=== PATIENT | male | born 1965 | race Caucasian/White ===

== ENCOUNTER 2019-10-30 16:06 | Outpatient (CLI) | payer MEDICARE, OTHER ==
--- NOTE | 2019-10-30 16:30 | RAD ---
EXAM: CERVICAL SPINE THREE VIEWS: 10/30/19 HISTORY: M54.12, pinched nerve in neck. Exam includes neutral, flexion, and extension lateral views. Generalized disc osteophytosis. No prevertebral abnormal soft tissue swelling. No acute fracture or d islocation involving the visualized C-spine. IMPRESSION: Generalized spondylosis. POS: [facility]
== END 2019-10-30 16:07 | disposition home or self-care (01) ==
LOC: TBSIIMAG 16:06
PROVIDERS: ATTEND Neurological Surgery
DX: M47.22 Other spondylosis with radiculopathy, cervical region (principal)
CPT/HCPCS: 72040

== ENCOUNTER 2019-11-20 13:19 | Outpatient (CLI) | payer OTHER ==
--- NOTE | 2019-11-20 14:50 | CT ---
CT CHEST WITHOUT CONTRAST: INDICATION: Followup abnormal chest x-ray 11/13/2019. That exam revealed a right apical density. FINDINGS: There are chronic lung parenchymal changes. There are small pleural-based bullous changes in both ap ical regions. There is bilateral apical pleural thickening which is more prominent on the right. Th e apical pleural thickening on the right is somewhat nodular along the posterior right apical pleural surface. This would explain the density noted on recent plain film. There is a small focal pleural-based nodular density in the posterior left upper lobe seen on image 1 1 of 54. The nodular component measures in the 8-9 mm range on the axial image 11 of 54. Lung oscar are otherwise clear. Mediastinum unremarkable. No adenopathy. Images through the upper abdomen are unremarkable. Osseou s structures are unremarkable. IMPRESSION: Chronic lung changes. Small pleural-based bullae are seen in both apical regions which associated bi lateral apical pleural thickening which has a nodular appearance bilaterally as described above. Maria T rt-term followup chest CT is recommended to confirm stability of the nodular pleural thickening. Rec ommend repeat noncontrast chest CT in 6 months to confirm stability. POS: [facility]
== END 2019-11-20 13:20 | disposition home or self-care (01) ==
LOC: SCSCT 13:19
PROVIDERS: ATTEND Family Medicine
DX: R91.8 Other nonspecific abnormal finding of lung field (principal); J43.9 Emphysema, unspecified; J92.9 Pleural plaque without asbestos; J98.4 Other disorders of lung
CPT/HCPCS: 71250

== ENCOUNTER 2020-01-06 06:23 | Outpatient (CLI) | payer OTHER ==
[2020-01-06 15:23] LABS: Hemoglobin 14.4 g/dL (14.0-18.0); Mean Corpuscular Hemoglobin 32.6 pg (27.0-31.0); Mean Corpuscular Volume 98.5 fL (78.0-98.0); Mean Platelet Volume 7.3 fL (7.4-10.4); Platelet Count 372 thou/uL (130-400); RBC Distribution Width 12.3 % (11.5-14.5); Red Blood Cell (RBC) Count 4.43 mill/uL (4.70-6.10); White Blood Cell (WBC) Count 11.2 thou/uL (4.8-10.8)
[2020-01-06 15:29] LABS: PTT 36.3 SEC (22.9-36.1); Prothrombin Time 12.7 SEC (12.0-14.7)
== END 2020-01-06 06:24 | disposition home or self-care (01) ==
LOC: LABBT 06:23
PROVIDERS: ATTEND Neurological Surgery
DX: Z01.812 Encounter for preprocedural laboratory examination (principal); M47.12 Other spondylosis with myelopathy, cervical region
CPT/HCPCS: 85027; 85610; 85730

== ENCOUNTER 2020-01-06 14:00 | Inpatient (IN) | payer OTHER ==
--- NOTE | 2020-01-05 21:05 | HP ---
SUPERVISING PHYSICIAN: Brandon Cole MD CHIEF COMPLAINT: Neck surgery. HISTORY OF PRESENT ILLNESS: Popeye is a 54-year-old male, who reports neck pain and bilateral arm pain. Pain on the left arm is greater than the right arm. The patient states that he has been at pain for at least over a year. The pain goes down into his left shoulder down the back of his arm and the top of his hand bilaterally affecting his pointer and middle finger. He has numbness and tingling in the same distribution. He denies any balance issues. PAST MEDICAL HISTORY: Anxiety, seasonal allergies, chronic pain. PAST SURGICAL HISTORY: Denies. HOSPITALIZATIONS: Denies past hospitalization. PAST FAMILY HISTORY: Father . Mother alive, diagnosed with diabetes and heart disease. SOCIAL HISTORY: Former smoker, quit as of September 2019 for surgery. No alcohol use. No drug use. Sexually active, yes. MEDICATIONS: 1. Naproxen. 2. Gabapentin. 3. Quetiapine. ALLERGIES: NO KNOWN DRUG ALLERGIES. REVIEW OF SYSTEMS: CONSTITUTIONAL: Denies fever, or chills. HEENT: Denies double vision, blurred vision, or difficulty swallowing. CARDIOVASCULAR/RESPIRATORY: Denies chest pain, shortness of breath, or cough. GI: Denies indigestion, vomiting, black stool. : Denies burning urination, blood in the urine, incontinence. MUSCULOSKELETAL: As per history of present illness. NEUROLOGICAL: As per history of present illness. PSYCHOLOGICAL: Denies anxiety at this time, depression, personality changes, or crying. PHYSICAL EXAMINATION: CONSTITUTIONAL: The patient is alert and oriented x3. Appropriate, nontoxic. NECK: Soft, supple. No masses are noted. Range of motion is intact and nonpainful. NEUROLOGICAL: Awake, alert, and oriented x3. Memory, attention, fund of knowledge normal. Cranial nerves grossly intact. Upper extremities 5/5 strength in deltoids, triceps, finger extensions, finger intrinsics, biceps, wrist extension. Sensations equal bilaterally. Reflexes symmetric, brisk, 2 beats clonus. Spurling's negative. Positive cervical radiculopathy on the left. Positive Lhermitte's phenomenon and myopathy, IMAGING STUDIES: Imaging shows cervical MRI degenerative changes stenosis C4-C5 , less than on C5-C6, C6-C7. X-ray generalized spondylosis. ASSESSMENT: 1. Cervical spondylosis with myopathy. 2. Cervical pain. 3. Cervical radiculopathy. 4. Cervical stenosis of the spine. PLAN: ACDF C4-5, C5-6, C6-7. Case #[id number]. Obtain anesthesia clearance. The patient has quit nicotine as of September 2019. INFORMED CONSENT: We discussed, indications, risks, benefits, and alternatives , as well as the expected outcomes from anterior cervical diskectomy and fusion. The risks discussed include, but are not limited to bleeding, infection, CSF leak, damage to the trachea, esophagus or vocal cords, dysphagia, spinal cord injury, wheelchair dependent, ventilator dependent, stroke, major blood vessel injury, anesthesia complications including . Long-term risks include need for future surgery or hardware failure. The patient expressed understanding of our discussion and would like to proceed. Job ID: [id number] MTDD
[2020-01-08] MEDS ORDERED: Midazolam HCl 2 mg/2 ml Vial ONE (11:44)
[2020-01-08] MEDS ORDERED: Thrombin 5000 UNITS/5 ML VIAL ONE (11:54)
[2020-01-08] MEDS ORDERED: Fentanyl 100 MCG/2 ML VIAL ONE ×5 (13:29→19:44)
[2020-01-08] MEDS ORDERED: Fentanyl 250 MCG/5 ML VIAL ONE (13:44)
[2020-01-08] MEDS ORDERED: Lidocaine 1% PF 5 ML VIAL ONE (14:19)
[2020-01-08] MEDS ORDERED: EPHEDRINE 25 MG/5 ML SYRINGE ONE (14:19)
[2020-01-08] MEDS ORDERED: Vecuronium 10 MG VIAL ONE (14:19)
[2020-01-08] MEDS ORDERED: Ondansetron PF 4 MG/2 ML Vial ONE (14:19)
[2020-01-08] MEDS ORDERED: Dexamethasone 20 MG/5 ML VIAL ONE (14:19)
[2020-01-08] MEDS ORDERED: Succinylcholine Chloride 20 MG/ML 10 ml SYRINGE FS ONE (14:19)
[2020-01-08] MEDS ORDERED: PROPOFOL 200 MG/20 ML VIAL ONE (14:19)
[2020-01-08] MEDS ORDERED: Sodium Chloride 0.9% 20 ML ONE (14:44)
[2020-01-08] MEDS ORDERED: SUGAMMADEX SODIUM 200 MG/2 ML VIAL ONE (14:54)
[2020-01-08] MEDS ORDERED: Promethazine HCl 25 MG/ML VIAL IM PRN ×2 (19:21→19:33)
[2020-01-08] MEDS ORDERED: traMADol HCl 50 MG TAB PO PRN ×2 (19:21)
[2020-01-08] MEDS ORDERED: Acetaminophen 650 MG Suppository PR PRN (19:21)
[2020-01-08] MEDS ORDERED: Ondansetron PF 4 MG/2 ML Vial IVP PRN (19:21)
[2020-01-08] MEDS ORDERED: Promethazine 25 MG TAB PO PRN (19:21)
[2020-01-08] MEDS ORDERED: Mag-Al 1200 mg/1200 mg/30 ML UDCUP PO PRN (19:21)
[2020-01-08] MEDS ORDERED: Milk Of Magnesia 30 ML UDCUP PO PRN (19:21)
[2020-01-08] MEDS ORDERED: Promethazine HCl 12.5 MG SUPP PR PRN (19:21)
[2020-01-08] MEDS ORDERED: Acetaminophen 325 MG TAB PO PRN (19:21)
[2020-01-08] MEDS ORDERED: diphenhydrAMINE 25 MG CAP PO PRN (19:21)
[2020-01-08] MEDS ORDERED: Acetaminophen/Codeine 30-300mg Tablet PO PRN ×2 (19:21)
[2020-01-08] MEDS ORDERED: Bisacodyl 10 MG SUPP PR PRN (19:21)
[2020-01-08] MEDS ORDERED: diphenhydrAMINE 50 MG/ML VIAL IVP PRN (19:21)
[2020-01-08] MEDS ORDERED: HYDROmorphone 2 MG/ML VIAL SLOW IVP PRN (19:33)
[2020-01-08] MEDS ORDERED: PACU-Morphine 4MG/ML VIAL SLOW IVP PRN (19:33)
[2020-01-08] MEDS ORDERED: Ondansetron HCl/PF 4 MG/2 ML Vial IVP PRN (19:33)
[2020-01-08] MEDS ORDERED: Promethazine HCl 25 MG/ML VIAL SLOW IVP PRN (19:33)
[2020-01-08] MEDS ORDERED: Morphine Sulfate 2 MG/ML SYRINGE SLOW IVP PRN (19:33)
[2020-01-08] MEDS ORDERED: Scopolamine 1.5 mg/72 hour Patch TD SCH (20:00)
[2020-01-08] MEDS ORDERED: Morphine 4 MG/ML VIAL ONE (20:10)
[2020-01-08] MEDS ORDERED: HYDROmorphone 0.5 MG/0.5 ML SYRINGE ONE (20:24)
[2020-01-08] MEDS: Sodium Chloride 0.9% 1,000 ML IV SCH (21:49)
[2020-01-08] MEDS: Gabapentin 300 MG CAP PO SCH (21:51)
[2020-01-08] MEDS: CEFAZOLIN 2 GM in Premix Bag 1 BAG IVPB SCH (21:52)
[2020-01-08] MEDS: tiZANidine HCl 4 MG TAB PO PRN (21:54)
[2020-01-08] MEDS: Morphine 2 MG/ML SYRINGE SLOW IVP PRN (21:54)
[2020-01-08 22:06] VITALS: BMI 22.1
[2020-01-08] MEDS: Morphine 4 MG/ML VIAL SLOW IVP PRN (23:20)
--- NOTE | 2020-01-09 00:48 | OP ---
DATE OF PROCEDURE: 01/08/2020 ALLEY WORKER: Abel Solano PA-C PREOPERATIVE INDICATION: Treat pain and prevent neurological deterioration. 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 OPERATIVE PROCEDURE: Anterior cervical diskectomy, intervertebral arthrodesis, and placement of intervertebral biomechanical device at C4-C5, C5-C6, and C6-C7. Anterior cervical plating at C4-C7, local morselized autograft, morselized allograft, and operating microscope. PREOPERATIVE MEDICATION: Ancef 2 g IV. DRAIN NUMBER: Zero. DRAIN TYPE: None. DESCRIPTION OF PROCEDURE: The patient was brought to the operating room. General endotracheal anesthesia was induced. The patient was carefully positioned on the operating table with his head supported by a gel-filled doughnut shaped headrest. A lateral fluoro radiograph was used to plan our incision. The right side of the neck was sterilely prepped and draped. We opened with a 10 blade knife and we controlled bleeding with bipolar cautery. We dissected sharply to the platysma and we cut this muscle in line with our incision. We continued our dissection medial to the sternocleidomastoid and lateral to the trachea and esophagus. We arrived to the prevertebral space. We placed a marker at C4-C5 and took a lateral fluoro radiograph to confirm the levels upon which we were operating. We then elevated the longus colli muscles off the anterior surface of C4, C5, C6, and C7. We placed a self-retaining retractor beneath these muscles at C5. We placed distraction pins at C4 and C6 and distracted across the two intervening interspaces with the [place] distractor. With a 15 blade knife, we incised the disk at C4-C5 and C5-C6 and removed disk contents using curettes and rongeurs. The operative microscope was brought into the field. Under microscopic magnification and using microsurgical techniques, we removed the remainder of the intervertebral disk. We accessed the ventral epidural space with a micro curette, and removed posterior osteophytes and posterior longitudinal ligament across the entire interspace with [place] rongeurs. This proceeded from one neural foramen all the way to the other across the entire interspace at C4-C5. In a similar fashion, decompression, removal of posterior osteophytes was done at C5-C6 until the dura was decompressed from left to right. We turned our attention to arthrodesis. Large curettes were brought into the field to remove the cartilaginous cap off the endplates. A bone rasp was used to measure the height of the interspace to 8 mm at C4-C5 and C5-C6 and two separate 8 mm PEEK intervertebral grafts were brought into the field. Osteophytes removed during our decompression were cleaned of soft tissue attachments, morcellized and added into demineralized bone matrix as our fusion substrate. The substrate was packed into the center of the 8 mm PEEK grafts and those grafts were advanced into their respective interspaces under radiographic guidance to the appropriate depth. We then removed our distraction pin at C4. We moved our lateral retractors to C6-C7 and placed the pin at C7. We distracted from the pin at C6 to the pin at C7 across the C7 interspace. We incised the interspace and removed disk contents as we had at the previous two interspaces. In a similar fashion, microsurgical techniques were used to access the ventral epidural space. We removed posterior osteophytes and posterior longitudinal ligament across the entire interspace from one neural foramen to the other. We then used curettes to prepare the endplates for grafting and measured the height of the interspace to 9 mm. A 9 mm PEEK graft was brought into the field, loaded with demineralized bone matrix and morselized autograft, and advanced into the interspace under radiographic guidance to the appropriate depth. We then removed the distraction pins and the operative microscope. A 57 mm anterior cervical plate was brought into the field. We drilled gliding pilot instructor holes through the plate into the vertebral bodies at C4, C5, C6, and C7, and we affixed the plate using 14 mm screws. We engaged the locking mechanism over each of the eight screws. Fixed angle screws were used at C7 and variable angle screws at C4, C5, and C6. AP and lateral fluoro radiographs confirmed adequate positioning of our instrumentation. We irrigated copiously with bacitracin irrigation. We closed in anatomical layers and we applied a sterile dressing. This was a clean case, no contamination. Job ID: [id number]
[2020-01-09] MEDS: Morphine 2 MG/ML SYRINGE SLOW IVP PRN ×2 (01:39→07:06)
[2020-01-09] MEDS: Morphine 4 MG/ML VIAL SLOW IVP PRN (04:38)
[2020-01-09] MEDS: CEFAZOLIN 2 GM in Premix Bag 1 BAG IVPB SCH (04:42)
[2020-01-09] MEDS ORDERED: Tamsulosin HCl 0.4 MG CAP PO SCH (06:00)
[2020-01-09] MEDS: tiZANidine HCl 4 MG TAB PO PRN (06:25)
--- NOTE | 2020-01-09 07:11 | PRG ---
DATE OF SERVICE: 01/09/2020 Mr. Duncan is one day out from ACDF from C4-C7. His hands and fingers already feel better than I did before surgery. He is pleased with that result. He has some soreness in the neck. Overnight, I do not see any fevers recorded among the electronic vital signs. Blood pressures have been in the 120s to 150s. The neurological examination has improved. Mr. Duncan is ready for discharge. He is safe for his activities of daily living. He is drinking liquids through a straw. He is swallowing fine. We will send him home with oral analgesics (Tylenol No. 3 or Ultram) and muscle relaxant ( Zanaflex). He thinks he may need something stronger like oxycodone or hydrocodone or fentanyl, but I do not believe those will be necessary. Followup arrangements have been made. Wound care had been reviewed and activity restrictions have been discussed. Job ID: [id number] MTDD
[2020-01-09 07:33] VITALS: BP 129/65; TEMP 97.9
[2020-01-09] MEDS: Gabapentin 300 MG CAP PO SCH (08:06)
[2020-01-09] MEDS: Sodium Chloride 0.9% 1,000 ML IV SCH (08:06)
[2020-01-09] MEDS ORDERED: Gabapentin 300 MG CAP PO SCH ×2 (08:30→15:00)
== END 2020-01-09 08:40 | disposition home or self-care (01) | DRG 472 ==
LOC: SURG A 01-08 10:09 → INTOOBSV 01-08 10:09 → OBSVTOIN 01-08 10:09 → SJJU 01-08 21:01
PROVIDERS: ADMIT Neurological Surgery; ATTEND Neurological Surgery
PROC: 0RG20A0 Fusion of 2 or more Cervical Vertebral Joints with Interbody Fusion Device, Anterior Approach, Anterior Column, Open Approach (ICD-10-PCS; principal; 2020-01-08)
PROC: 0RB30ZZ Excision of Cervical Vertebral Disc, Open Approach (ICD-10-PCS; 2020-01-08)
DX: M48.02 Spinal stenosis, cervical region (principal); M50.021 Cervical disc disorder at C4-C5 level with myelopathy; F41.9 Anxiety disorder, unspecified; G89.29 Other chronic pain; J30.2 Other seasonal allergic rhinitis; M50.121 Cervical disc disorder at C4-C5 level with radiculopathy; Z87.891 Personal history of nicotine dependence
CPT/HCPCS: C1713; C1776; J0690; J1100; J1170; J2001; J2250; J2270; J2405; J2704; J3010; J3490

== ENCOUNTER 2020-03-11 10:37 | Outpatient (CLI) | payer OTHER ==
--- NOTE | 2020-03-11 12:26 | RAD ---
CERVICAL SPINE 5 VIEWS: Date: 03/11/2020 INDICATION: Postop follow-up. Flexion and extension views obtained. COMPARISON: 10/30/2019. FINDINGS: Postoperative changes since prior exam. Anterior plate and screws are now present transfixing C4, C5, C6, and C7 levels. Interbody implants. Slight posterolisthesis at C4-5 with posterior spondylosis at this level. This does not appear to significantly change with flexion or extension. Otherwise, alignment is normally maintained. Degenerative osteophytes are seen at C3-4 anteriorly. Mild facet hypertrophy. IMPRESSION: Postoperative and degenerative changes of cervical spine as described. POS: [facility]
== END 2020-03-11 10:38 | disposition home or self-care (01) ==
LOC: BICRAD 10:37
PROVIDERS: ATTEND Neurological Surgery
DX: M47.812 Spondylosis without myelopathy or radiculopathy, cervical region (principal); R13.10 Dysphagia, unspecified; Z98.890 Other specified postprocedural states
CPT/HCPCS: 72050

== ENCOUNTER 2024-05-13 10:15 | Outpatient (CLI) | payer OTHER | END 2024-05-13 10:16 | disposition home or self-care (01) | LOC: PET 10:15 | PROVIDERS: ATTEND Family Medicine | DX: R91.8 Other nonspecific abnormal finding of lung field (principal) | CPT/HCPCS: 78815; A9552 ==